=== PATIENT | male | born 1945 | race Hispanic/Latino ===

== ENCOUNTER → 2017-11-04 | Outpatient (CLI) | payer OTHER | END | disposition home or self-care (01) | LOC: RAH 09:39 | PROVIDERS: ATTEND Family Medicine | DX: M47.26 Other spondylosis with radiculopathy, lumbar region (principal); M41.86 Other forms of scoliosis, lumbar region; M48.061 Spinal stenosis, lumbar region without neurogenic claudication; M25.78 Osteophyte, vertebrae; M43.17 Spondylolisthesis, lumbosacral region; M85.80 Other specified disorders of bone density and structure, unspecified site; E78.5 Hyperlipidemia, unspecified | CPT/HCPCS: 71046; 72114 ==

== ENCOUNTER 2018-06-20 11:20 | Observation (INO) | payer MEDICARE, OTHER ==
[~2018-06-20] VITALS: Ht 165.1 cm; Wt 90.7 kg
[2018-06-20] MEDS ORDERED: NITROGLYCERIN 1GM/1 INCH PACKET TD ONE (11:52)
[2018-06-20] MEDS ORDERED: FUROSEMIDE 10 MG/ML 2ML VIAL ONE (11:53)
[2018-06-20] MEDS ORDERED: PREDNISONE 20 MG TABLET ONE (11:54)
[2018-06-20] MEDS ORDERED: AZITHROMYCIN 250 MG TABLET PO ONE (11:55)
[2018-06-20 11:56] LABS: BASOPHILS % (AUTO) 0.1 % (0.0-5.0); HEMATOCRIT 43.1 % (42-54); LYMPHOCYTES % (AUTO) 8.1 % (21.0-51.0); MEAN CORPUSCULAR HEMOGLOBIN 24.5 pg (27.0-33.0); MEAN CORPUSCULAR HGB CONC 32.1 g/dL (32.0-36.0); MEAN CORPUSCULAR VOLUME 76.2 fL (79-99); MONOCYTES % (AUTO) 10.4 % (3.0-13.0); NEUTROPHILS % (AUTO) 81.4 % (40.0-77.0); NUCLEATED RED BLOOD CELLS 0.1 % (0.0-0.19); PLATELET COUNT (AUTO) 263 K/uL (130-400); RED BLOOD CELL COUNT(AUTO) 5.66 MIL/uL (4.50-6.20); RED CELL DISTRIBUTION WIDTH 18.8 % (11.0-15.5); WHITE BLOOD COUNT (AUTO) 13.7 K/uL (4.8-10.8)
[2018-06-20] MEDS ORDERED: ENOXAPARIN SODIUM 40 MG/0.4 ML SYRINGE SQ ONE (12:02)
[2018-06-20] MEDS ORDERED: ASPIRIN 325 MG TABLET ONE (12:03)
[2018-06-20 12:04] LABS: CREATININE 1.4 mg/dL (0.5-1.5); POTASSIUM 4.5 mmol/L (3.5-5.1)
[2018-06-20 12:16] LABS: B-TYPE NATRIURETIC PEPTIDE 591 pg/mL (0-100)
[2018-06-20 12:18] LABS: ALBUMIN 3.9 g/dL (3.5-5.0); BILIRUBIN,TOTAL 0.6 mg/dL (0.2-1.0); TOTAL PROTEIN, SERUM 8.2 g/dL (6.0-8.3)
[2018-06-20 12:21] LABS: INR 1.22 (0.85-1.15); PROTHROMBIN TIME 12.8 SEC (9.6-11.6)
[2018-06-20] MEDS: NITROGLYCERIN 1GM/1 INCH PACKET TD SCH (12:45)
[2018-06-20] MEDS ORDERED: NITROGLYCERIN 0.4 MG SL TAB SL PRN (12:45)
[2018-06-20] MEDS ORDERED: CLONIDINE HCL 0.1 MG TABLET PO PRN (12:45)
[2018-06-20] MEDS ORDERED: IPRATROPIUM/ALBUTEROL SULFATE 3 ML SOLUTION IH PRN (12:45)
[2018-06-20] MEDS ORDERED: ONDANSETRON HCL 4 MG/2 ML VIAL IVP PRN (12:45)
[2018-06-20] MEDS ORDERED: SODIUM CHLORIDE 0.9% 10 ML VIAL IVP PRN (12:45)
[2018-06-20] MEDS ORDERED: LACTULOSE 20 GM/30 ML UDCUP PO PRN (12:45)
[2018-06-20] MEDS ORDERED: METOPROLOL TARTRATE 25 MG TAB ONE (15:00)
[2018-06-20 18:20] VITALS: BP 143/96
[2018-06-20 19:46] VITALS: BP 135/85
[2018-06-20] MEDS ORDERED: FENO50CA4 PO (20:47)
[2018-06-20] MEDS ORDERED: ATOR40TA71 PO (20:47)
[2018-06-20] MEDS ORDERED: TAMS-1 PO (20:47)
[2018-06-20 21:29] LABS: TROPONIN I 0.06 ng/mL (0.00-0.06)
[2018-06-20 23:46] VITALS: BP 112/78
[2018-06-21] MEDS: NITROGLYCERIN 1GM/1 INCH PACKET TD SCH ×2 (00:26→13:03)
[2018-06-21 01:30] LABS: CREATINE KINASE, TOTAL 372 U/L (21-232); MYOGLOBIN 209 ng/mL (10-92); TROPONIN I < 0.04 ng/mL (0.00-0.06)
[2018-06-21 03:41] LABS: HEMATOCRIT 39.5 % (42-54); MEAN CORPUSCULAR HEMOGLOBIN 24.2 pg (27.0-33.0); MEAN CORPUSCULAR HGB CONC 31.6 g/dL (32.0-36.0); MEAN CORPUSCULAR VOLUME 76.5 fL (79-99); PLATELET COUNT (AUTO) 246 K/uL (130-400); RED BLOOD CELL COUNT(AUTO) 5.16 MIL/uL (4.50-6.20); RED CELL DISTRIBUTION WIDTH 18.6 % (11.0-15.5); WHITE BLOOD COUNT (AUTO) 10.3 K/uL (4.8-10.8)
[2018-06-21 03:56] LABS: CREATININE 1.3 mg/dL (0.5-1.5); POTASSIUM 4.1 mmol/L (3.5-5.1)
[2018-06-21 04:04] LABS: BAND NEUTROPHILS % (MANUAL) 16 % (0-2); LYMPHOCYTES % (MANUAL) 13 % (22-44); MAN.DIFF COMMENT-IMPRESSION MANUAL DIFFERENTIAL; MONOCYTES % (MANUAL) 1 % (2-9); PLATELET MORPHOLOGY COMMENT ADEQUATE; SEGMENTED NEUTROPHILS % 70 % (40-70)
[2018-06-21 04:22] VITALS: BP 106/60
[2018-06-21 07:46] VITALS: BP 126/77
--- NOTE | 2018-06-21 07:50 | NUR ---
MD VISIT DR ALEE RUIZ IN TO SEE PT. UPDATED ON PT'S STATUS. PT TO HAVE ERIC SCAN TODAY. NO CAFFEINE IN LAST 24 HRS PER PT. NO BFAST THIS AM.
--- NOTE | 2018-06-21 08:15 | NUR ---
AM ASSESSMENT PT LAYING IN BED, HOB ELEVATED 30 DEGREES, WATCHING TV. A/O X 3. NO SOB. NO DISTRESS NOTED. O2 NC @ 2L. DENIES CHEST PAIN OR DISCOMFORT. DENIES PALPITATIONS. TELE: AFIB 40s. DENIES N/V AND/OR DIARRHEA. INSTRUCTED TO CALL FOR ASSISTANCE. CALL MARCELO W/IN REACH.
[2018-06-21] MEDS ORDERED: PREDNISONE 20 MG TABLET PO SCH (09:00)
[2018-06-21] MEDS ORDERED: ASPIRIN 325 MG TABLET PO SCH (09:00)
[2018-06-21] MEDS ORDERED: ENOXAPARIN SODIUM 40 MG/0.4 ML SYRINGE SQ SCH (09:00)
[2018-06-21] MEDS ORDERED: AZITHROMYCIN 250 MG TABLET PO SCH (09:00)
[2018-06-21] MEDS ORDERED: FUROSEMIDE 10 MG/ML 2ML VIAL IVP SCH ×2 (09:00)
--- NOTE | 2018-06-21 09:15 | NUR ---
ERIC SCAN ERIC SCAN TO BE DONE @ 1300 TODAY. PT MAY HAVE CLEAR LIQUID BFAST. AM MEDICATIONS GIVEN @ THIS TIME. REINFORCED NPO STATUS AFTER CLEAR LIQUID BFAST. PT STATES UNDERSTANDING.
[2018-06-21] MEDS: METOPROLOL TARTRATE 25 MG TAB PO SCH ×2 (09:20→20:25)
[2018-06-21] MEDS: LISINOPRIL 5 MG TABLET PO SCH (09:20)
[2018-06-21 11:36] VITALS: BP 123/85
--- NOTE | 2018-06-21 14:10 | NUR ---
STATUS PT TAKEN TO NUCLEAR MED FOR ERIC SCAN VIA WC. TELE ALICIA REMOVED.
[2018-06-21] MEDS ORDERED: REGADENOSON 0.4 MG/5 ML PF SYG IVP SCH (14:45)
[2018-06-21] MEDS: FUROSEMIDE 10 MG/ML 2ML VIAL IVP SCH (16:19)
[2018-06-21 16:48] VITALS: BP 120/80
[2018-06-21 19:16] VITALS: BP 105/52
[2018-06-21 23:58] VITALS: BP 108/73
[2018-06-22] MEDS: NITROGLYCERIN 1GM/1 INCH PACKET TD SCH (00:29)
[2018-06-22 03:42] LABS: CREATININE 1.4 mg/dL (0.5-1.5); POTASSIUM 3.8 mmol/L (3.5-5.1)
[2018-06-22] MEDS: FUROSEMIDE 10 MG/ML 2ML VIAL IVP SCH (04:08)
[2018-06-22 04:34] VITALS: BP 93/57
[2018-06-22 07:56] VITALS: BP 106/78
[2018-06-22] MEDS: LISINOPRIL 5 MG TABLET PO SCH (07:59)
[2018-06-22] MEDS: METOPROLOL TARTRATE 25 MG TAB PO SCH (08:00)
--- NOTE | 2018-06-22 08:00 | NUR ---
AM ASSESSMENT PT SITTING IN CHAIR, WATCHING TV. A/O X 3. NO SOB. NO DISTRESS NOTED. DENIES CHEST PAIN OR DISCOMFORT. DENIES PALPITATIONS. TELE: AFIB 80s. DENIES N/V AND/OR DIARRHEA. UP AD ELEAZAR. INSTRUCTED TO CALL FOR ASSISTANCE. CALL MARCELO W/IN REACH.
[2018-06-22 11:20] VITALS: BP 111/80
--- NOTE | 2018-06-22 13:40 | NUR ---
DISCHARGE VERBAL & WRITTEN DISCHARGE INSTRUCTIONS REVIEWED & GIVEN TO PT. QUESTIONS ENCOURAGED & CLARIFIED. PROPER CARE & MGT OF ATRIAL FIBRILLATION REVIEWED. NEW PRESCRIBED MEDICATIONS REVIEWED. PRESCRIPTION GIVEN TO PT, SIGNED COPY PLACED IN CHART. PT TO CONTINUE TAKING PREVIOUS HOME MEDICATIONS. TELE ALICIA REMOVED EARLIER. IV DISCONTINUED. PT TO GATHER PERSONAL BELONGINGS. FAMILY TO PICK PT FROM HOSPITAL. PT TO NOTIFY STAFF WHEN FAMILY ARRIVES.
--- NOTE | 2018-06-22 13:55 | NUR ---
DISCHARGE FAMILY HERE TO TAKE PT HOME. PT TAKEN TO PRIVATE VEHICLE VIA WC BY Sabina MCKENZIE PCP. NO DISTRESS NOTED
[2018-06-26] MEDS ORDERED: RIVA20TA PO (09:16)
[2018-06-26] MEDS ORDERED: METO25TA6 PO (09:16)
[2018-06-26] MEDS ORDERED: FURO20TA6 PO (09:16)
== END 2018-06-22 13:57 | disposition home or self-care (01) ==
LOC: EDH 11:20 → EDHIP 12:36 → 2DH 18:39
PROVIDERS: ADMIT Internal Medicine; ATTEND Internal Medicine
DX: I20.0 Unstable angina (principal); J45.901 Unspecified asthma with (acute) exacerbation; I11.0 Hypertensive heart disease with heart failure; E78.5 Hyperlipidemia, unspecified; N40.0 Benign prostatic hyperplasia without lower urinary tract symptoms; G47.30 Sleep apnea, unspecified; I48.0 Paroxysmal atrial fibrillation; M54.16 Radiculopathy, lumbar region; I50.31 Acute diastolic (congestive) heart failure; Z79.899 Other long term (current) drug therapy; Z87.891 Personal history of nicotine dependence
CPT/HCPCS: 36415 ×3; 71046; 78452; 80048 ×2; 80053; 82550 ×3; 83874 ×2; 83880 ×2; 84484 ×3; 85025 ×2; 85610; 85730; 93005; 93017; 93306; 94664; 96374; 96376 ×2; 99284; A9500 ×2; G0378 ×49; J1650; J1940 ×4; J2785

== ENCOUNTER 2018-06-23 16:06 | Inpatient (IN) | payer OTHER | END 2018-06-30 16:34 | disposition home or self-care (01) | LOC: EDH 16:06 → 3BH 06-24 16:12 → EDHIP 18:27 → 2BH 19:40 | DX: I26.99 Other pulmonary embolism without acute cor pulmonale (principal); I50.33 Acute on chronic diastolic (congestive) heart failure; I82.441 Acute embolism and thrombosis of right tibial vein; I48.2 Chronic atrial fibrillation; E78.5 Hyperlipidemia, unspecified; Z79.01 Long term (current) use of anticoagulants ==

== ENCOUNTER → 2018-08-18 | Outpatient (CLI) | payer OTHER ==
[~2018-08-18] MED LIST: ATOR40TA71 PO; FENO50CA4 PO; FURO20TA6 PO; METO25TA6 PO; RIVA20TA PO; TAMS-1 PO
== END | disposition home or self-care (01) ==
LOC: SHCH 10:49
PROVIDERS: ATTEND Internal Medicine Cardiovascular Disease
DX: I82.210 Acute embolism and thrombosis of superior vena cava (principal); R06.09 Other forms of dyspnea
CPT/HCPCS: 93306

== ENCOUNTER → 2019-06-19 | Outpatient (CLI) | payer OTHER | END | disposition home or self-care (01) | LOC: RAH 12:21 | PROVIDERS: ATTEND Family Medicine | DX: M51.24 Other intervertebral disc displacement, thoracic region (principal); M48.02 Spinal stenosis, cervical region; M48.04 Spinal stenosis, thoracic region; M50.221 Other cervical disc displacement at C4-C5 level; M50.223 Other cervical disc displacement at C6-C7 level; M50.222 Other cervical disc displacement at C5-C6 level; G95.89 Other specified diseases of spinal cord | CPT/HCPCS: 72141; 72146 ==

== ENCOUNTER → 2022-01-11 | Outpatient (CLI) | payer OTHER | END | disposition home or self-care (01) | LOC: RAH 12:26 | PROVIDERS: ATTEND Urology | DX: N20.0 Calculus of kidney (principal); N18.9 Chronic kidney disease, unspecified; M47.816 Spondylosis without myelopathy or radiculopathy, lumbar region; K57.30 Diverticulosis of large intestine without perforation or abscess without bleeding | CPT/HCPCS: 74176 ==

== ENCOUNTER → 2022-05-19 | Outpatient (CLI) | payer OTHER | END | disposition home or self-care (01) | LOC: RAH 12:15 | PROVIDERS: ATTEND Internal Medicine Cardiovascular Disease | DX: I08.3 Combined rheumatic disorders of mitral, aortic and tricuspid valves (principal); I11.0 Hypertensive heart disease with heart failure; I50.9 Heart failure, unspecified; E78.5 Hyperlipidemia, unspecified | CPT/HCPCS: 93306 ==

== ENCOUNTER → 2022-07-23 | Outpatient (CLI) | payer OTHER | END | disposition home or self-care (01) | LOC: RAH 12:59 | PROVIDERS: ATTEND Orthopaedic Surgery | DX: M17.12 Unilateral primary osteoarthritis, left knee (principal) | CPT/HCPCS: 93926 ==

== ENCOUNTER → 2022-12-02 | Outpatient (CLI) | payer OTHER ==
[~2022-12-02] MED LIST changes: +REGADENOSON 0.4 MG/5 ML PF SYG IVP SCH
== END | disposition home or self-care (01) ==
LOC: RAH 08:51
PROVIDERS: ATTEND Internal Medicine Cardiovascular Disease
DX: Z01.810 Encounter for preprocedural cardiovascular examination (principal); I48.91 Unspecified atrial fibrillation
CPT/HCPCS: 78452; 96374; 93017; J2785; A9500 ×2

== ENCOUNTER → 2022-12-30 | Outpatient (CLI) | payer OTHER ==
[~2022-12-30] MED LIST changes: +ICOS1CAP PO; -REGADENOSON 0.4 MG/5 ML PF SYG IVP SCH
== END | disposition home or self-care (01) ==
LOC: RAH 14:02
PROVIDERS: ATTEND Orthopaedic Surgery
DX: M19.072 Primary osteoarthritis, left ankle and foot (principal); M16.12 Unilateral primary osteoarthritis, left hip; M17.12 Unilateral primary osteoarthritis, left knee; M85.88 Other specified disorders of bone density and structure, other site; M25.462 Effusion, left knee; M77.32 Calcaneal spur, left foot
CPT/HCPCS: 73700

== ENCOUNTER 2023-01-11 06:54 | Observation (INO) | payer OTHER ==
[2023-01-05 15:58] LABS: BASOPHILS # (AUTO) 0.05 K/uL (0.00-0.20); BASOPHILS % (AUTO) 0.9 % (0.0-5.0); EOSINOPHILS # (AUTO) 0.08 K/uL (0.00-0.70); EOSINOPHILS % (AUTO) 1.5 % (0.0-8.0); HEMATOCRIT 49.5 % (42-54); IMMATURE GRANULOCYTE ABSOLUTE 0.02 K/uL (0-1); LYMPHOCYTES # (AUTO) 1.1 K/uL (1.0-4.8); MEAN CORPUSCULAR HEMOGLOBIN 30.2 pg (27.0-33.0); MEAN CORPUSCULAR HGB CONC 33.3 g/dL (32.0-36.0); MEAN CORPUSCULAR VOLUME 90.7 fL (79-99); MONOCYTES # (AUTO) 0.5 K/uL (0.1-1.0); MONOCYTES % (AUTO) 8.9 % (3.0-13.0); NEUTROPHILS # (AUTO) 3.6 K/uL (1.8-7.7); NEUTROPHILS % (AUTO) 68.3 % (40.0-77.0); PLATELET COUNT (AUTO) 199 K/uL (130-400); RED BLOOD CELL COUNT(AUTO) 5.46 MIL/uL (4.50-6.20); RED CELL DISTRIBUTION WIDTH 13.4 % (11.0-15.5); WHITE BLOOD COUNT (AUTO) 5.3 K/uL (4.8-10.8)
[2023-01-05 16:05] LABS: CREATININE 0.9 mg/dL (0.5-1.5); POTASSIUM 4.3 mmol/L (3.5-5.1)
[2023-01-05 16:09] LABS: INR 1.21 (0.85-1.15); PROTHROMBIN TIME 13.9 SEC (9.6-11.6)
[2023-01-05 16:11] LABS: PARTIAL THROMBOPLASTIN TIME 33.6 SEC (26.3-35.5)
[2023-01-05 16:48] VITALS: BP 137/85; PULSE 75; RESP 18
[~2023-01-11] VITALS: Ht 157.5 cm; Wt 86.7 kg
[2023-01-11] VITALS (27 sets, daily range): BP systolic 109–151; BP diastolic 64–95; PULSE 61–93; RESP 13–20; O2SAT 97–98
[~2023-01-11 06:54] MED LIST changes: +CEFAZOLIN SODIUM 1 GM VIAL IVPB PRN; -FENO50CA4 PO; -FURO20TA6 PO; -METO25TA6 PO
[2023-01-11] MEDS ORDERED: TRANEXAMIC ACID 1000MG/10ML ONE (07:36)
[2023-01-11] MEDS: LACTATED RINGERS 1000ML 1,000 ML IV SCH ×3 (07:44→19:57)
[2023-01-11] MEDS ORDERED: FERROUS FUMARATE 324 MG TABLET PO PRN (08:00)
[2023-01-11] MEDS ORDERED: KCL 20 MEQ ERTAB PO PRN (08:00)
[2023-01-11] MEDS ORDERED: HYDROCODONE/ACETAMINOPHEN 10/325 MG TAB PO PRN (08:00)
[2023-01-11] MEDS ORDERED: POTASSIUM CHLORIDE 20MEQ/100ML 100 ML IV PRN (08:00)
[2023-01-11] MEDS ORDERED: HYDROCODONE/ACETAMINOPHEN 5/325 MG TAB PO PRN (08:00)
[2023-01-11] MEDS ORDERED: MORPHINE 4 MG SYG IVP PRN (08:00)
[2023-01-11] MEDS ORDERED: POTASSIUM CHLORIDE 10% ELIXIR 20 MEQ/15 ML UDCUP PO PRN (08:00)
[2023-01-11] MEDS ORDERED: ONDANSETRON 4MG INJ IVP PRN (08:00)
[2023-01-11] MEDS ORDERED: MIDAZOLAM HCL 1 MG/ML 2ML VIAL ONE (08:52)
[2023-01-11] MEDS ORDERED: DEXAMETHASONE SOD PHOSPHATE 10MG/ML 1ML VIAL ONE (08:52)
[2023-01-11] MEDS ORDERED: PROPOFOL 10 MG/ML 20ML VIAL IV ONE (08:52)
[2023-01-11] MEDS ORDERED: GLYCOPYRROLATE 1 MG/5 ML SYRINGE ONE (08:52)
[2023-01-11] MEDS ORDERED: NEOSTIGMINE 5MG/5ML SYR IV ONE (08:52)
[2023-01-11] MEDS ORDERED: LIDOCAINE PF 100MG/5ML (2%) SYRINGE 5ML ONE (08:52)
[2023-01-11] MEDS ORDERED: ONDANSETRON 4MG INJ ONE (08:52)
[2023-01-11] MEDS ORDERED: SUCCINYLCHOLINE 200MG/10ML SYR ONE (08:52)
[2023-01-11] MEDS ORDERED: FENTANYL CITRATE PF 50 MCG/1 ML 2ML VIAL ONE (08:52)
[2023-01-11] MEDS ORDERED: ROCURONIUM 10MG/1ML SYR 10 MG/ML ML ONE (08:52)
[2023-01-11] MEDS ORDERED: MORPHINE PF 100MG/10ML AMP IV ONE (08:56)
[2023-01-11] MEDS: APIXABAN 2.5 MG TABLET PO SCH ×2 (09:00→20:06)
[2023-01-11] MEDS ORDERED: NON-FORMULARY MEDICATION 1 EACH (Icosapent Ethyl (Vascepa) 1 GM) PO SCH (09:00)
[2023-01-11] MEDS: FAMOTIDINE 20MG TAB PO SCH ×2 (09:00→20:06)
[2023-01-11] MEDS: POLYETHYLENE GLYCOL 3350 17 GM POWD.PACK PO SCH (09:00)
[2023-01-11] MEDS: FISH OIL 1000 MG/CAP PO SCH ×2 (09:00→20:06)
[2023-01-11] MEDS ORDERED: CEFAZOLIN SODIUM 2 GM VIAL IVPB ONE ×2 (09:20→09:38)
[2023-01-11] MEDS ORDERED: TRANEXAMIC ACID 1000MG/10ML IV ONE (09:30)
[2023-01-11] MEDS: ACETAMINOPHEN 1,000 MG/100 ML VIAL IV SCH ×2 (11:57→18:02)
[2023-01-11] MEDS: TRAMADOL HCL 50 MG TABLET PO SCH ×2 (12:00→18:04)
[2023-01-11] MEDS: IBUPROFEN 800MG + NS 250ML IV SCH ×2 (14:26→22:54)
[2023-01-11] MEDS: 0.9%NACL 1000ML 1,000 ML IV SCH (14:26)
[2023-01-11] MEDS: CEFAZOLIN SODIUM 1 GM VIAL IVPB SCH ×2 (17:02→20:07)
[2023-01-11] MEDS: TAMSULOSIN HCL 0.4 MG CAP.ER.24H PO SCH (20:06)
[2023-01-12] VITALS (8 sets, daily range): BP systolic 110–138; BP diastolic 66–82; PULSE 70–91; RESP 16–19; O2SAT 97
[2023-01-12] MEDS: TRAMADOL HCL 50 MG TABLET PO SCH ×5 (00:08→23:30)
[2023-01-12] MEDS: ACETAMINOPHEN 1,000 MG/100 ML VIAL IV SCH (01:14)
[2023-01-12 03:48] LABS: CREATININE 1.1 mg/dL (0.5-1.5); POTASSIUM 4.1 mmol/L (3.5-5.1)
[2023-01-12 03:50] LABS: MEAN CORPUSCULAR HEMOGLOBIN 30.2 pg (27.0-33.0); MEAN CORPUSCULAR HGB CONC 33.1 g/dL (32.0-36.0); MEAN CORPUSCULAR VOLUME 91.1 fL (79-99); RED BLOOD CELL COUNT(AUTO) 4.61 MIL/uL (4.50-6.20); RED CELL DISTRIBUTION WIDTH 13.2 % (11.0-15.5); WHITE BLOOD COUNT (AUTO) 7.5 K/uL (4.8-10.8)
[2023-01-12] MEDS: 0.9%NACL 1000ML 1,000 ML IV SCH (04:00)
[2023-01-12] MEDS: IBUPROFEN 800MG + NS 250ML IV SCH (06:32)
[2023-01-12] MEDS: POLYETHYLENE GLYCOL 3350 17 GM POWD.PACK PO SCH (09:18)
[2023-01-12] MEDS: FAMOTIDINE 20MG TAB PO SCH ×2 (09:18→20:05)
[2023-01-12] MEDS: APIXABAN 2.5 MG TABLET PO SCH ×2 (09:18→20:05)
[2023-01-12] MEDS: FISH OIL 1000 MG/CAP PO SCH ×2 (09:18→20:05)
[2023-01-12] MEDS: TAMSULOSIN HCL 0.4 MG CAP.ER.24H PO SCH (20:05)
[2023-01-13 04:01] VITALS: BP 128/71; PULSE 94; RESP 18
[2023-01-13] MEDS: TRAMADOL HCL 50 MG TABLET PO SCH ×4 (06:25→23:22)
[2023-01-13 08:00] VITALS: BP 122/82; PULSE 98; RESP 18; O2SAT 98
[2023-01-13] MEDS: FAMOTIDINE 20MG TAB PO SCH ×2 (08:36→19:22)
[2023-01-13] MEDS: APIXABAN 2.5 MG TABLET PO SCH ×2 (08:36→19:22)
[2023-01-13] MEDS: FISH OIL 1000 MG/CAP PO SCH ×2 (08:36→19:22)
[2023-01-13] MEDS: POLYETHYLENE GLYCOL 3350 17 GM POWD.PACK PO SCH (08:36)
[2023-01-13 12:00] VITALS: BP 137/81; PULSE 95; RESP 18
[2023-01-13 16:00] VITALS: BP 133/72; PULSE 94; RESP 20
[2023-01-13] MEDS: TAMSULOSIN HCL 0.4 MG CAP.ER.24H PO SCH (19:22)
[2023-01-13 19:30] VITALS: BP 146/78; PULSE 102; RESP 22
[2023-01-13 23:01] VITALS: BP 125/77; PULSE 93; RESP 18
[2023-01-14 03:47] VITALS: BP 120/68; PULSE 98; RESP 17
[2023-01-14] MEDS: TRAMADOL HCL 50 MG TABLET PO SCH ×2 (06:14→12:34)
[2023-01-14 08:00] VITALS: BP 136/80; PULSE 87; RESP 18; O2SAT 92
[2023-01-14] MEDS ORDERED: BISACODYL 10 MG SUPP.RECT RC PRN (08:00)
[2023-01-14] MEDS: FISH OIL 1000 MG/CAP PO SCH (08:18)
[2023-01-14] MEDS: POLYETHYLENE GLYCOL 3350 17 GM POWD.PACK PO SCH (08:19)
[2023-01-14] MEDS: APIXABAN 2.5 MG TABLET PO SCH (08:19)
[2023-01-14] MEDS: FAMOTIDINE 20MG TAB PO SCH (08:19)
[2023-01-14 12:00] VITALS: BP 124/71; PULSE 102; RESP 18
== END 2023-01-14 15:05 ==
LOC: DAH 06:54 → DAHIP 06:55 → DAH 06:55 → 4AH 12:40
PROVIDERS: ADMIT Orthopaedic Surgery; ATTEND Orthopaedic Surgery
DX: M17.12 Unilateral primary osteoarthritis, left knee (principal); E78.5 Hyperlipidemia, unspecified; D62 Acute posthemorrhagic anemia; Z86.711 Personal history of pulmonary embolism; Z86.718 Personal history of other venous thrombosis and embolism; Z79.899 Other long term (current) drug therapy; Z98.890 Other specified postprocedural states; Z90.49 Acquired absence of other specified parts of digestive tract
CPT/HCPCS: 80048 ×2; 85025; 85610; 85730; 36415 ×2; 87641; 27447; 96365; 96366 ×2; 96375; 96367; 64447; 97161; 96376; 85027; 97039 ×4; 97116 ×6; 97530 ×2; A6260; C1776 ×3; G0378 ×73; A4663; J7120 ×2; A4649 ×3; J3010; J0690 ×3; J3490 ×3; J0330; J1100; J2710; J2001; J2250; J2704; J2274; J2405; J1741 ×2; A6223; G0168; A6212; A4930; A5120; A4215; A4223; A4222; A4221

== ENCOUNTER → 2023-07-25 | Outpatient (CLI) | payer OTHER ==
[~2023-07-25] MED LIST changes: -CEFAZOLIN SODIUM 1 GM VIAL IVPB PRN
== END | disposition home or self-care (01) ==
LOC: RAH 08:25
PROVIDERS: ATTEND Urology
DX: N20.0 Calculus of kidney (principal)
CPT/HCPCS: 74176

== ENCOUNTER → 2024-09-06 | Outpatient (CLI) | payer OTHER ==
[~2024-09-06] MED LIST changes: +METO25TA6 PO; +REGADENOSON 0.4 MG/5 ML PF SYG IVP ONE; -TAMS-1 PO; +TAMS-55 PO
--- NOTE | 2024-09-06 18:06 | HMCSR ---
APPROVED REPORT TEST INDICATIONS Dyspnea The imaging protocol used to acquire images was Rest Tc-99m/stress Tc-99m 1 day Consent: The procedure was explained and understood by the patient. Informerd consent was witnessed IMELDA GarciaMT First, low dose rest was performed then high dose stress. RESTING DATA: The resting ekg shows: Atrial Fibrillation Rest SPECT myocardial perfusion imaging was performed in supine position minutes following the intra venous injection of 10 mCi of Tc-99 Sestamibi. Time of rest injection: [id number] Date: 09/06/2024 PHARMACOLOGIC STRESS: Pharmacologic stress test was performed by injecting regadenoson 0.4 mg IV push followed by the intra venous injection of 29 mCi of Tc-99 Sestamibi. Time of stress injection: 1101 Date: 09/06/2024 Heart Rate at time of stress injection: 67 bpm. The images were gated to evaluate regional wall motion and calculate left ventricular ejection fracti on. STRESS DETAILS Reason for Termination: Infusion complete Stress Symptoms: Cough Max HR Achieved: 93 bpm % of APMHR Achieved: 77 Max Blood Pressure: 121/83 mmHg Stress ECG: Atrial Fibrillation Study quality was good. Lung uptake was Normal. Artifact: No artifact IMPRESSION Normal pharmacologic nuclear stress test. Conclusion Normal perfusion. TID 0.77. LVEF 72%
== END | disposition home or self-care (01) ==
LOC: RAH 08:47
PROVIDERS: ATTEND Internal Medicine Cardiovascular Disease
DX: R06.00 Dyspnea, unspecified (principal); I48.91 Unspecified atrial fibrillation; I25.10 Atherosclerotic heart disease of native coronary artery without angina pectoris
CPT/HCPCS: 78452; 93017; J2785; A9500 ×2